=== PATIENT | male | born 1985 | race Caucasian/White ===

== ENCOUNTER 2017-01-25 15:24 | Emergency (ER) | payer OTHER ==
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
[2017-01-25 16:32] LABS: BASOPHIL % 0.5 %; EOSINOPHIL # 0.1 K/uL (0.0-0.5); EOSINOPHIL % 1.5 %; HEMATOCRIT 42.1 % (37.0-53.0); HEMOGLOBIN 14.3 g/dL (12.0-17.0); IMMATURE GRANULOCYTE % 0.4 %; LYMPHOCYTE # 1.2 K/uL (0.8-4.0); LYMPHOCYTE % 15.1 %; MCH 28.7 pg (27.0-34.0); MCV 84.5 fl (83.0-98.0); MONOCYTE # 0.5 K/uL (0.0-1.0); MONOCYTE % 6.6 %; MPV 9.8 fl (9.4-12.4); NEUTROPHIL # (ANC) 6.2 K/uL (1.4-9.0); NEUTROPHIL % 75.9 %; NRBC % 0 /100WBC (0-0.00); PLATELET COUNT 253 K/uL (150-450); RBC 4.98 M/uL (4.00-6.00); RDW-CV 12.7 % (11.9-14.6); WBC 8.1 K/uL (4.0-11.0)
[2017-01-25 16:39] LABS: INR - (THERAPEUTIC) 0.94 (0.92-1.07); PROTIME 9.9 SECONDS (9.8-11.4); PTT 25 SECONDS (25-32)
[2017-01-25 16:45] LABS: ALBUMIN 3.9 gm/dL (3.5-5.0); ALK PHOS 65 IU/L (33-138); ALT 73 IU/L (12-78); ANION GAP 9.9 (10.0-19.0); AST 70 IU/L (10-40); BLOOD UREA NITROGEN 19 mg/dL (6-24); CALCIUM 8.8 mg/dL (8.5-10.5); CHLORIDE 108 mMol/L (96-110); CO2 25 mMol/L (22-32); CREATININE 1.2 mg/dL (0.6-1.3); POTASSIUM 3.9 mMol/L (3.7-5.1); SODIUM 139 mMol/L (135-145); TOTAL BILIRUBIN 0.4 mg/dL (0.0-1.5); TOTAL PROTEIN 7.1 g/dL (6.0-8.4)
== END 2017-01-25 20:07 | disposition disaster alternative care site (69) ==
LOC: GACC 15:24
PROVIDERS: Family Medicine
PROC: 09Q1XZZ Repair Left External Ear, External Approach (ICD-10-PCS; principal; 2017-01-25)
DX: S22.41XA Multiple fractures of ribs, right side, initial encounter for closed fracture (principal); S01.312A Laceration without foreign body of left ear, initial encounter; Z90.49 Acquired absence of other specified parts of digestive tract; Z98.890 Other specified postprocedural states; V89.2XXA Person injured in unspecified motor-vehicle accident, traffic, initial encounter; Y92.410 Unspecified street and highway as the place of occurrence of the external cause
CPT/HCPCS: G0480; J1885; J3010; Q9967

== ENCOUNTER → 2017-01-25 | Emergency (ER) | payer OTHER | END | disposition disaster alternative care site (69) | LOC: GAMB 14:53 | DX: R41.0 Disorientation, unspecified (principal); H92.22 Otorrhagia, left ear; S09.93XA Unspecified injury of face, initial encounter; S09.90XA Unspecified injury of head, initial encounter; S29.9XXA Unspecified injury of thorax, initial encounter; R07.89 Other chest pain; R60.0 Localized edema; V59.40XA Driver of pick-up truck or van injured in collision with unspecified motor vehicles in traffic accident, initial encounter ==